=== PATIENT | male | born 1955 | race Caucasian/White ===

== ENCOUNTER 2017-04-07 12:29 | Observation (INO) | payer OTHER ==
--- NOTE | ~2017-04-07 | CN ---
Consultation Report [facility] [address] [place]. [address] NAME: HANG MONTGOMERY : 53 STATUS : ADM IN PAT#: [id number] AGE: 61 ADM/REG DATE : 04/07/17 MR#: [id number] REPORT SERV DATE: 04/07/17 DICTATED BY: CRUZ TURCIOS DATE: 04/07/17 REPORT STATUS : Draft TRANSCRIBED BY: MODL DATE: 04/07/17 ELECTROPHYSIOLOGY CONSULTATION DATE OF CONSULTATION: 04/07/2017 INDICATIONS: Second-degree AV block. HISTORY OF PRESENT ILLNESS: Mr. Hang Montgomery is a 61-year-old man who was seen in the office today for weakness. He was noted to have 2:1 AV block and was admitted to the hospital. Electrophysiology is consulted. On my discussion with the patient reports that he has had numerous episodes of passing out over the last year. He has weakness, fatigue, low energy, and effort intolerance. He is in 2:1 AV block with a ventricular rate of 45 beats per minute. He denies chest pain, orthopnea, PND, or lower extremity edema. No history of bypass grafting or stent placement. Reports possible remote NE, but knows no details. PAST MEDICAL HISTORY: Hypertension, history of aneurysm with clipping, seizures, dyslipidemia, smoking, obstructive lung disease. MEDICATIONS: Lisinopril 5 mg daily, aspirin 325 daily, omeprazole 20 daily, duloxetine 60 mg daily, gabapentin 600 mg twice daily, Keppra 1000 mg twice daily, hydrocodone 5/325 b.i.d., phenytoin 300 mg daily, trazodone 150 mg one and half tablets daily, pravastatin 20 mg daily, Ventolin as needed, Colace 100 mg twice daily as needed for constipation and Lasix 20 mg each day. ALLERGIES: THE PATIENT DENIES ANY ALLERGIES. SOCIAL HISTORY: Ongoing smoking. FAMILY HISTORY: Reviewed and noncontributory. REVIEW OF SYSTEMS: As per the HPI. Otherwise, all other systems negative. PHYSICAL EXAMINATION: VITAL SIGNS: Blood pressure 118/78, pulse 45, respiratory rate is 16. GENERAL: Appears stated age, no distress. EYES: Sclerae anicteric, no arcus senilis. MOUTH: Oral mucosa moist, lips acyanotic. NECK: Jugular venous pressure normal, no carotid bruits. LUNGS: Clear to auscultation bilaterally, normal inspiratory effort. CARDIAC: Irregular rhythm, bradycardic, 1/6 systolic ejection murmur. ABDOMEN: Soft, nondistended, nontender. EXTREMITIES: No edema. Consultation Report [place] [address] [place]. [address] NAME: HANG MONTGOMERY : 53 STATUS : ADM IN PAT#: [id number] AGE: 61 ADM/REG DATE : 04/07/17 MR#: [id number] REPORT SERV DATE: 04/07/17 DICTATED BY: CRUZ TURCIOS DATE: 04/07/17 REPORT STATUS : Draft TRANSCRIBED BY: TERESA DATE: 04/07/17 SKIN: Warm and dry. NEURO/PSYCH: Alert and oriented, nonfocal, mood appropriate. ELECTROCARDIOGRAM: 2:1 AV block with a right bundle-branch block conducted beat. IMPRESSION: 1. Symptomatic 2:1 AV block with weakness, presyncope/syncope. 2. Smoker. 3. Seizure disorder. 4. History of aneurysm clips. RECOMMENDATIONS: Discussed situation with the patient. He is on no rate modulating medicines who presents with symptomatic second-degree AV block. We will obtain echocardiogram as soon as possible and plan to proceed with implantation of a pacemaker. I have discussed with the patient the rationale, logistics, and risks. Risks include, but not limited to bleeding, infection, vascular complications, failure to place lead, lead dislodgement, pneumothorax. All questions were answered. The patient ate two Eggos and a piece of lizarraga at 08:00 a.m. GKB/TERESA Cruz Turcios M.D. / [id number] CC: Ryan Molina M.D.
--- NOTE | ~2017-04-07 | HP ---
History And Physical [place] [id number] [facility] [place]. [address] NAME: LIANE ANDERSON : 53 STATUS : ADM IN PAT#: [id number] AGE: 61 ADM/REG DATE : 04/07/17 MR#: [id number] REPORT SERV DATE: 04/07/17 DICTATED BY: ROSANNA MOLINA DATE: 04/07/17 REPORT STATUS : Draft TRANSCRIBED BY: MODL DATE: 04/07/17 DATE OF ADMISSION: 04/07/2017 CHIEF COMPLAINT: Dizziness and presyncope. HISTORY OF PRESENT ILLNESS: The patient is a 61-year-old male, seen at the [facility] as a new cardiology consultation. The patient reports several month history of intermittent dizziness with presyncope. He reports having had a stroke approximately two months ago, at which time he was admitted to [facility]. He reports seizures during the course of the hospitalization for which he was begun on an anti-seizure medications. He denies chest pain. Denies dyspnea on exertion. He is quite sedentary. He reports that his dizziness/presyncope predates his hospitalization for stroke. On EKG in the office, he was found to have a second degree heart block with 2:1 block with a ventricular rate of 45 beats per minute. He reports lightheadedness here. He is hemodynamically stable with adequate blood pressure. PAST MEDICAL HISTORY: 1. Remote history of cerebrovascular accident. 2. 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 3. Seizure disorder secondary to previous stroke. 4. Depression. 5. Tobacco abuse. 6. COPD. 7. GERD. 8. Chronic pain syndrome. 9. Hypertension. 10.Hyperlipidemia. FAMILY HISTORY: Father alive at age 91. Mother of unknown type of cancer at age 82. Brother with bypass surgery in older age. SOCIAL HISTORY: Smokes three to four packs of cigarettes per day. He has done so for approximately the last 50 years. Denies alcohol or illicit drug use. ALLERGIES: NO KNOWN DRUG ALLERGIES. REVIEW OF SYSTEMS: Negative for all organ systems except per the history of present illness. PHYSICAL EXAMINATION: VITAL SIGNS: Blood pressure 148/90, pulse 45, and weight 206 pounds. GENERAL: Elderly somewhat disheveled appearing male in no acute distress. HEENT: Normal. NECK: Partially closed tracheotomy. Tracheostomy site is noted. LUNGS: Clear to auscultation and percussion. No wheezes, rales or rhonchi. No use of History And Physical [address] [address] NAME: LIANE ANDERSON : 53 STATUS : ADM IN [facility]#: [id number] AGE: 61 ADM/REG DATE : 04/07/17 MR#: [id number] REPORT SERV DATE: 04/07/17 DICTATED BY: ROSANNA MOLINA DATE: 04/07/17 REPORT STATUS : Draft TRANSCRIBED BY: TERESA DATE: 04/07/17 accessory muscles. CARDIOLOGY: Bradycardiac. Regular rhythm, normal S1, S2, no thrill, no murmur, rubs or gallops, normal PMI. ABDOMEN: Bowel sounds positive, soft, nontender, and nondistended. No masses or aortic bruits. No hepatosplenomegaly or hepatojugular reflux. EXTREMITIES: No edema. Normal pulses. No clubbing or cyanosis. SKIN: Warm and dry, no significant rash. NEUROLOGIC: Alert and oriented x 3. Appropriate mood. IMAGING: EKG: Sinus rhythm with second-degree heart block with 2:1 block with a ventricular rate of 45 beats per minute. Right bundle branch block is present. IMPRESSION: Symptomatic heart block-patient will be admitted to a monitored bed at [facility]. The patient is on no rate modulating agents that should contribute to heart block. We will obtain records of the patient's recent hospitalization for stroke from [facility]. Electrophysiology consultation for consideration for permanent pacemaker implantation during this admission. Continue current outpatient medications. Echocardiogram to evaluate cardiac structure and function. Consideration for ENT evaluation for future outpatient consideration for closure of the previous tracheostomy site. CSL/MODL Ryan Molina M.D. / [id number] CC: Ryan Molina M.D. UNKNOWN
[2017-04-07 13:27] LABS: PROTIME (NOT ORD) 13.5 SEC (12.0-14.5)
[2017-04-07 13:30] LABS: A/G RATIO 0.9 (0.7-1.9); ALBUMIN 3.5 G/DL (3.5-5.0); ALKALINE PHOSPHATASE 126 U/L (45-117); BASOPHILS 1.8 %; BASOPHILS ABSOLUTE 0.14 10/3/uL (0.0-0.16); BUN (BLOOD UREA NITROGEN) 10 MG/DL (6-23); CALCIUM, SERUM 9.2 MG/DL (8.5-10.4); CHLORIDE, SERUM 109 MMOL/L (96-112); CO2 (CARBON DIOXIDE) 20 MMOL/L (24-34); CREATININE 0.93 MG/DL (0.70-1.30); EOSINOPHILS 2.2 %; EOSINOPHILS ABSOLUTE 0.17 10/3/uL (0.0-0.53); GFR AFRICAN AMERICAN 102 ML/MIN (>=60); GFR NON AFRICAN AMERICAN 88 ML/MIN (>=60); GLUCOSE, SERUM 79 MG/DL (60-99); HEMATOCRIT 44.4 % (40.0-51.0); HEMOGLOBIN 14.9 g/dL (13.6-17.8); IMMATURE GRANULOCYTES 0.6 %; IMMATURE GRANULOCYTES ABSOLUTE 0.05 10/3/uL (0.0-0.11); LYMPHOCYTES 39.3 %; LYMPHOCYTES ABSOLUTE 3.06 10/3/uL (0.67-4.30); MEAN CORPUS HGB CONC 33.6 g/dL (32.0-36.0); MEAN CORPUSCULAR HEMOGLOB 28.8 pg (26.0-34.0); MEAN CORPUSCULAR VOLUME 85.7 fL (80-100); MEAN PLATELET VOLUME 10.9 fL (9.2-13.0); MONOCYTES 8.1 %; MONOCYTES ABSOLUTE 0.63 10/3/uL (0.21-1.20); NEUTROPHILS ABSOLUTE 3.73 10/3/uL (2.02-8.40); PLATELET COUNT 301 10/3/uL (150-400); RBC DISTRIBUTION WIDTH 15.2 % (12.0-16.0); RED CELL COUNT 5.18 10/6/uL (4.7-6.1); SGPT(ALT) 25 U/L (5-65); SODIUM, SERUM 136 MMOL/L (135-148); TOTAL BILIRUBIN 0.3 MG/DL (0-1.2); TOTAL PROTEIN 7.5 G/DL (6.0-8.5); WHITE BLOOD CELLS 7.8 10/3/uL (4.5-10.5)
[2017-04-07 13:33] LABS: MANUAL DIFF NO %
[2017-04-07 13:34] LABS: POTASSIUM, SERUM 4.2 MMOL/L (3.5-5.3); SGOT(AST) 17 U/L (5-40)
[2017-04-07 13:56] LABS: PLATELET ESTIMATE ADQ (ADEQUATE); RBC MORPHOLOGY NORM (NORMAL)
[2017-04-07] MEDS ORDERED: ASAEC PO (23:09)
[2017-04-07] MEDS ORDERED: PRIN5 PO (23:09)
[2017-04-07] MEDS ORDERED: PRILO PO (23:10)
[2017-04-07] MEDS ORDERED: CYMBALTA60 PO (23:10)
[2017-04-07] MEDS ORDERED: NEUR600 PO (23:11)
[2017-04-07] MEDS ORDERED: KEPPRA1000 MG PO (23:11)
[2017-04-07] MEDS ORDERED: NORCO1 TA1 PO ×2 (23:12→23:14)
[2017-04-07] MEDS ORDERED: TRAZODONE150 MG PO (23:13)
[2017-04-07] MEDS ORDERED: D100 PO (23:13)
[2017-04-07] MEDS ORDERED: PRAVAC PO (23:14)
[2017-04-07] MEDS ORDERED: VENTOLIN HFA INH (23:15)
[2017-04-07] MEDS ORDERED: T PO (23:16)
[2017-04-07] MEDS ORDERED: L20 PO (23:16)
[2017-04-07] MEDS ORDERED: DSS PO (23:16)
== END 2017-04-08 12:27 ==
LOC: 6NO 12:29
PROVIDERS: Internal Medicine Cardiovascular Disease
PROC: 0JH606Z Insertion of Pacemaker, Dual Chamber into Chest Subcutaneous Tissue and Fascia, Open Approach (ICD-10-PCS; principal; 2017-04-07)
PROC: 02H63JZ Insertion of Pacemaker Lead into Right Atrium, Percutaneous Approach (ICD-10-PCS; 2017-04-07)
PROC: 02HK3JZ Insertion of Pacemaker Lead into Right Ventricle, Percutaneous Approach (ICD-10-PCS; 2017-04-07)
DX: I44.1 Atrioventricular block, second degree (principal); J44.9 Chronic obstructive pulmonary disease, unspecified; I10 Essential (primary) hypertension; E78.5 Hyperlipidemia, unspecified; K21.9 Gastro-esophageal reflux disease without esophagitis; G40.909 Epilepsy, unspecified, not intractable, without status epilepticus; G89.4 Chronic pain syndrome; F17.210 Nicotine dependence, cigarettes, uncomplicated; Z86.73 Personal history of transient ischemic attack (TIA), and cerebral infarction without residual deficits; Z98.890 Other specified postprocedural states
CPT/HCPCS: 33208; 71010; 80053; 82962; 83735; 85025; 85610; 93005; 93306; A9270-GY; C1785; C1892; C1898; G0378; J0360; J0690; J3010; Q9967